=== PATIENT | female | born 1985 | race American Indian/Alaskan Native ===

== ENCOUNTER 2016-11-07 19:21 | Outpatient (CLI) | payer MEDICAID ==
[2016-11-07] MEDS ORDERED: LACTATED RINGERS 1,000 ML ONE (19:39)
[2016-11-07] MEDS ORDERED: LACTATED RINGERS 1,000 ML IV ONE (19:49)
[2016-11-07 20:02] VITALS: BP 102/57
[2016-11-07 20:31] LABS: Bilirubin,Urine NEG (Negative); Blood,Urine NEG (Negative); Ketones,Urine NEG (Negative); Leukocyte Esterase,Urine NEG (Negative); Mucus,Urine 1+ /HPF; Nitrite,Urine NEG (Negative); Protein,Urine <15 mg/dL mg/dL (Negative); Urobilinogen,Urine < 2.0 mg/dL (<2.0)
== END 2016-11-07 21:15 | disposition home or self-care (01) ==
LOC: TRG 19:21
PROVIDERS: ATTEND Obstetrics & Gynecology
DX: O62.9 Abnormality of forces of labor, unspecified (principal); Z3A.31 31 weeks gestation of pregnancy
CPT/HCPCS: 81001; 96360; J7120

== ENCOUNTER 2016-12-05 04:41 | Outpatient (CLI) | payer MEDICAID ==
[2016-12-05] MEDS ORDERED: LACTATED RINGERS 1,000 ML IV ONE (04:44)
[2016-12-05 04:58] VITALS: BP 97/61
[2016-12-05 05:39] LABS: Basophils % (Auto) 0.3 % (0.0-1.8); Eosinophils % (Auto) 1.2 % (0.0-4.3); Hematocrit 29.6 % (30.3-42.9); Hemoglobin 9.5 gm/dl (10.1-14.3); Mean Corpuscular HGB Conc 32 % (30-34); Mean Corpuscular Volume 75 fl (79-97); Platelet Count 301 K/mm3 (140-440); Red Blood Count 3.96 M/mm3 (3.65-5.03); Red Cell Distribution Width 16.7 % (13.2-15.2); White Blood Count 8.4 K/mm3 (4.5-11.0)
[2016-12-05 05:43] LABS: Mean Corpuscular Hemoglobin 24 pg (28-32)
[2016-12-05 05:45] LABS: Bacteria,Urine 1+ /HPF (Negative); Bilirubin,Urine NEG (Negative); Blood,Urine NEG (Negative); Ketones,Urine NEG (Negative); Leukocyte Esterase,Urine NEG (Negative); Nitrite,Urine NEG (Negative); Protein,Urine <15 mg/dL mg/dL (Negative); Urobilinogen,Urine < 2.0 mg/dL (<2.0); WBC,Urine < 1.0 /HPF (0.0-6.0)
[2016-12-05 06:02] LABS: Albumin 3.2 g/dL (3.9-5); Alkaline Phosphatase 111 units/L (35-129); Anion Gap 18 mmol/L; Bilirubin,Total < 0.20 mg/dL (0.1-1.2); Blood Urea Nitrogen 5 mg/dL (7-17); Calcium 8.9 mg/dL (8.4-10.2); Carbon Dioxide 21 mmol/L (22-30); Chloride 102.2 mmol/L (98-107); Glucose 85 mg/dL (65-100); Potassium 3.5 mmol/L (3.6-5.0); Sodium 138 mmol/L (137-145); Total Protein 6.5 g/dL (6.3-8.2)
[2016-12-05 06:08] LABS: Alanine Aminotransferase < 5 units/L (7-56)
== END 2016-12-05 06:23 | disposition home or self-care (01) ==
LOC: TRG 04:41
PROVIDERS: ATTEND Obstetrics & Gynecology
DX: Z34.93 Encounter for supervision of normal pregnancy, unspecified, third trimester (principal); Z3A.35 35 weeks gestation of pregnancy
CPT/HCPCS: 36415; 59025; 80053; 81001; 85025

== ENCOUNTER 2016-12-12 10:51 | Outpatient (CLI) | payer MEDICAID ==
[2016-12-12] MEDS ORDERED: LACTATED RINGERS 500 ML IV ONE (11:28)
[2016-12-12 12:35] LABS: Bacteria,Urine 2+ /HPF (Negative); Bilirubin,Urine NEG (Negative); Blood,Urine NEG (Negative); Ketones,Urine NEG (Negative); Leukocyte Esterase,Urine NEG (Negative); Mucus,Urine FEW /HPF; Nitrite,Urine NEG (Negative); Protein,Urine <15 mg/dL mg/dL (Negative); Urobilinogen,Urine < 2.0 mg/dL (<2.0)
--- NOTE | 2016-12-12 13:01 | Ultrasound Report ---
ULTRASOUND OB LIMITED History: well being, trauma, fall Technique: Transabdominal ultrasound with Doppler interrogation. Gestation: Single Position: Cephalic Amniotic Fluid: Increased VICKI = 26.0 cm Placenta: Anterior Placental Grade: 2 Heart Rate: 127 BPM Comment: No evidence for abruption.
[2016-12-12 14:43] VITALS: BP 103/52
== END 2016-12-12 16:00 | disposition home or self-care (01) ==
LOC: TRG 10:51
PROVIDERS: ATTEND Obstetrics & Gynecology
DX: O47.1 False labor at or after 37 completed weeks of gestation (principal); Z3A.37 37 weeks gestation of pregnancy
CPT/HCPCS: 59025; 76815; 81001

== ENCOUNTER 2016-12-29 22:28 | Inpatient (IN) | payer MEDICAID ==
[2016-12-30] MEDS ORDERED: LACTATED RINGERS 1,000 ML ONE (01:22)
[2016-12-30 01:43] LABS: Hematocrit 29.6 % (30.3-42.9); Hemoglobin 9.6 gm/dl (10.1-14.3); Mean Corpuscular HGB Conc 33 % (30-34); Mean Corpuscular Volume 74 fl (79-97); Platelet Count 254 K/mm3 (140-440); Red Blood Count 4.03 M/mm3 (3.65-5.03); Red Cell Distribution Width 17.4 % (13.2-15.2); White Blood Count 10.8 K/mm3 (4.5-11.0)
[2016-12-30 01:50] LABS: Mean Corpuscular Hemoglobin 24 pg (28-32)
[2016-12-30] MEDS ORDERED: STADOL IV PRN (02:35)
[2016-12-30] MEDS: LACTATED RINGERS 1,000 ML IV SCH ×2 (03:04→05:33)
[2016-12-30] MEDS ORDERED: PITOCin/NS 20 UNIT/1000ML DRIP 20,000 MILLIUNITS/1,000 ML BAG IV ONE (07:52)
[2016-12-30] MEDS ORDERED: BICITRA ONE (07:53)
[2016-12-30] MEDS ORDERED: ANCEF/STERILE WATER 2 GM/20 ML 2 GM/20 ML SYRINGE IV ONE (07:55)
[2016-12-30] MEDS ORDERED: PEPCID IV ONE (07:55)
[2016-12-30] MEDS ORDERED: REGLAN ONE (07:56)
[2016-12-30] MEDS ORDERED: ANCEF/STERILE WATER 2 GM/20 ML 2 GM/20 ML SYRINGE IV NR (08:00)
--- NOTE | 2016-12-30 08:07 | Anesthesia Day of Surgery ---
Anesthesia Day of Surgery - Day of Surgery Patient Examined: Yes Patient H&P Reviewed: Yes Patient is NPO: Yes
--- NOTE | 2016-12-30 08:07 | Anesthesia Consultation ---
Anesthesia Consult and Med Hx Date of service: 12/30/16 - Airway Anesthetic Teeth Evaluation: Good ROM Head & Neck: Adequate Mental/Hyoid Distance: Adequate Mallampati Class: Class II Intubation Access Assessment: Probably Good - Pre-Operative Health Status ASA Pre-Surgery Classification: ASA3 Proposed Anesthetic Plan: Epidural, Spinal - Pulmonary Hx Asthma: No - Cardiovascular System Hx Hypertension: No - Central Nervous System Hx Seizures: No Hx Psychiatric Problems: Yes (anxiety) - Endocrine Hx Renal Disease: Yes (kidney failure last ) Hx Hypothyroidism: No Hx Hyperthyroidism: No - Hematic Hx Anemia: No Hx Sickle Cell Disease: No - Other Systems Hx Alcohol Use: No Hx Obesity: Yes (BMI 42.9)
--- NOTE | 2016-12-30 08:15 | History and Physical Report ---
History of Present Illness Date of examination: 12/30/16 Date of admission: 12/30/16 08:07 Chief complaint: contractions, scheduled section History of present illness: Pt is 31 year old -[place] female SLOAN 01/05/17 at 39w1d who presented last night for contractions without cervical change but was scheduled for repeat section today. She denies vaginal bleeding or leakage of fluid. She has had care at [facility] since 13 wks when she transferred into care complicated by previous x 1, contractions and size greater than dates. She is GBS negative. Past History Past Medical History: no pertinent history Past Surgical History: section (2010) Family/Genetic History: diabetes, hypertension Social history: no significant social history, - Obstetrical History Expected Date of Delivery: 01/05/17 Actual Gestation: 39 Week(s) 1 Day(s) : 2 Para: 1 Hx # Term Pregnancies: 0 Number of Pregnancies: 1 Spontaneous Abortions: 0 Induced : 0 Number of Living Children: 1 Medications and Allergies Allergies Allergy/AdvReac Type Severity Reaction Status Date / Time latex Allergy Swelling Verified 12/12/16 11:28 magnesium Allergy Swelling Verified 12/12/16 11:28 Home Medications Medication Instructions Recorded Confirmed Last Taken Type Amoxicillin [Trimox CAP] 500 mg PO Q8H #21 capsule 05/26/13 Unknown Rx Ranitidine HCl [Ranitidine] 150 mg PO Q12H #30 tablet 05/26/13 Unknown Rx Active Meds: Active Medications Butorphanol Tartrate (Stadol) 2 mg IV Q2H PRN PRN Reason: Labor Pain Hydromorphone HCl (Dilaudid) 0.5 mg IV Q4H PRN PRN Reason: breakthrough pain > 7/10 Lactated Ringer's (Lactated Ringers) 1,000 mls @ 125 mls/hr IV DIRECT ROXY Last Admin: 12/30/16 05:33 Dose: 125 mls/hr Ketorolac Tromethamine (Toradol) 30 mg IV Q6H PRN PRN Reason: Pain, Moderate (4-6) Stop: 01/04/17 08:07 Naloxone HCl (Narcan 0.4 Mg/1 Ml) 0.2 mg IV Q2MIN PRN PRN Reason: Res Rate </= 8 or 02 SAT < 92% Stop: 01/01/17 08:08 Ondansetron HCl (Zofran) 4 mg IV Q8H PRN PRN Reason: Nausea And Vomiting Sodium Chloride (Sodium Chloride Flush Syringe 10 Ml) 10 ml IV PRN NR Review of Systems All systems: negative - Vital Signs Vital signs: Vital Signs Pulse BP 81 103/63 12/30/16 03:25 12/30/16 03:25 Temp Pulse Resp BP Pulse Ox 98.5 F 83 103/63 87 12/30/16 03:31 12/30/16 07:30 12/30/16 03:31 12/30/16 07:30 - Physical Exam Breasts: Positive: deferred Cardiovascular: Regular rate Lungs: Positive: Clear to auscultation Abdomen: Positive: soft (obese, gravid ) Uterus: Positive: enlarged (gravid ) Extremities: Positive: edema (trace ) - Obstetrical FHR: auscultation normal Uterine Contraction Monitor Mode: External Cervical Dilatation: 0 Uterine Contraction Pattern: Irregular Uterine Tone Measurement Phase: Resting Uterine Contraction Intensity: Strong/Firm Results Result Diagrams: 12/30/16 00:35 Abnormal lab results 12/30/16 Range/Units 00:35 Hgb 9.6 L (10.1-14.3) gm/dl Hct 29.6 L (30.3-42.9) % MCV 74 L (79-97) fl MCH 24 L (28-32) pg RDW 17.4 H (13.2-15.2) % All other labs normal. Assessment and Plan A: IUP at 39w1d Previous section x 1 Morbid Obesity Anemia- currently refusing blood products GBS negative P: Admit to labor and delivery. Proceed with repeat section and other indicated procedures.
[2016-12-30] MEDS ORDERED: MORPHINE ONE (08:20)
[2016-12-30] MEDS ORDERED: ZOFRAN IV PRN ×2 (08:30→12:00)
[2016-12-30] MEDS ORDERED: BICITRA PO NR (08:30)
[2016-12-30] MEDS ORDERED: REGLAN IV NR (08:30)
[2016-12-30] MEDS ORDERED: PEPCID IV NR (08:30)
[2016-12-30] MEDS ORDERED: DILAUDID IV PRN (08:30)
[2016-12-30] MEDS ORDERED: WATER FOR IRRIG STERILE IR ONE (08:40)
[2016-12-30] MEDS ORDERED: NACL 0.9% IR ONE (08:40)
[2016-12-30] MEDS ORDERED: SODIUM CHLORIDE FLUSH SYRINGE 10 ML IV PRN (09:00)
[2016-12-30] MEDS ORDERED: PITOCin/NS 20 UNIT/1000ML DRIP 20 UNITS/1,000 ML BAG IV SCH ×2 (09:00→12:00)
[2016-12-30] MEDS ORDERED: LACTATED RINGERS 1,000 ML IV SCH (09:00)
[2016-12-30] MEDS ORDERED: NARCAN 0.4 MG/1 ML IV PRN ×2 (09:00→12:00)
[2016-12-30] MEDS ORDERED: NEO SYNEPHRINE/NS Syringe(OR USE) IV ONE (09:00)
[2016-12-30] MEDS ORDERED: NACL 0.9% 1000 ML 1,000 ML ONE (09:02)
--- NOTE | 2016-12-30 09:57 | Procedure Note ---
OB Delivery Note - Delivery Date of Delivery: 12/30/16 Surgeon: CASIE TAM Estimated blood loss: other (850 mL) - Section Preop diagnosis: repeat Postop diagnosis: same section procedure: section, repeat low transverse Disposition: PACU Complications: none Narrative: Please see operative note. - Infant A at 1 minute: 9 at 5 minutes: 9 Gender: Male (3553g (7lb 13 oz))
--- NOTE | 2016-12-30 10:02 | Operative Report ---
Operative Report Operative Report: Date of procedure:December 30, 2016 Preoperative diagnosis: 1) IUP at 39w1d 2) Previous section x 1 3) Morbid Obesity Postoperative diagnosis: Same Procedure: Repeat low transverse section Surgeon: Isa Frank M.D. Anesthesia: Spinal-Epidural Findings: 1) Viable male , Apgars 9 and 9, weight 3553g, (7 lb 13 oz). Nuchal cord x 1. Occiput posterior presentation 2) Normal-appearing uterus ovaries and tubes Estimated blood loss: 850 mL IV fluids: 1700 mL Urine output: 500 mL, clear at the end of the procedure Drains: Boyd to gravity Specimens: None Complications:None Medication: Additional 20 units of pitocin in IVFs Disposition: Stable to PACU Indication for procedure: Pt is a 31 year old -[place] female at 39w1d with h/o previous x 1 who presents for scheduled section. Operation in detail: After the risks, benefits, alternatives and complications were explained to the patient she gave informed consent for the procedure. She was subsequently taken to the operating room where spinal-epidural anesthesia was noted to be adequate. She was subsequently placed in the dorsal supine position with leftward tilt and prepped and draped in a normal sterile fashion. heart tones were noted to be in the 140s prior to incision. A timeout was performed. A Pfannenstiel skin incision was made with the knife and carried down to the layer of the fascia with the Bovie. The fascia was incised in the midline and the fascial incision was extended bilaterally with the Bovie. Attention was then turned to the superior aspect of the incision which was grasped with two Kochers, tented up, and dissected off the rectus muscles. Attention was then turned to the inferior aspect of the incision which was grasped with two Kochers , tented up and dissected off the rectus muscles. The rectus muscles were then in the midline and partially transected for adequate visualization. The peritoneum was then entered bluntly. The peritoneal incision was extended with good visualization of the bladder. The peritoneal incision was then stretched. An Shahzad self-retaining retractor was placed for visualization. The bladder blade was placed. The vesicouterine peritoneum was grasped with smooth pickups and incised with Metzenbaum scissors. Metzenbaum scissors were used to extend the incision bilaterally. The bladder flap was then created digitally and the bladder blade was replaced. A transverse incision was made in the lower uterine segment with a knife and extended bilaterally with the bandage scissors. The head was delivered without difficulty followed by shoulders and body. was bulb suctioned at delivery. The cord was clamped and cut and the was handed to NICU staff in attendance. Cord blood was collected. The placenta was then delivered manually. The uterus was then cleared of all clots and debris. The uterus was noted to be atonic, and 20 units of pitocin were added to the IVFs with improvement in uterine tone.The hysterotomy was then reapproximated with 0 Vicryl in a running locked fashion. A second layer of the same suture was used in imbricating fashion. The hysterotomy was inspected and hemostasis was noted. The Shahzad self-retaining retractor was removed. The gutters were irrigated and cleared of all clots and debris. The hysterotomy was again inspected and noted to be hemostatic. Surgicel was placed over the hysterotomy. The rectus muscles and peritoneum were then reapproximated with 2-0 Vicryl in a running fashion. Additional figure of eights of 3-0 Vicryl suture were used to obtain hemostasis. The cut edges of the rectus muscles were then covered with Surgicel. The fascia was reapproximated with 0 Vicryl in a running fashion. The subcutaneous tissue was reapproximated with 3-0 Vicryl. The skin was reapproximated with 4-0 Vicryl in a subcuticular fashion. The incision was then covered with steri strips and a pressure dressing. The procedure was then ended. The patient tolerated the procedure well and was taken to the PACU in stable condition. All instrument, lap, and needle counts were correct 3.
[2016-12-30] MEDS ORDERED: LANSINOH TP PRN (12:00)
[2016-12-30] MEDS ORDERED: ANCEF/NS 1 GM/50 ML 1 GM/50 ML BAG IV SCH (12:00)
[2016-12-30] MEDS ORDERED: TYLENOL PO PRN (12:00)
[2016-12-30] MEDS ORDERED: TUCKS PAD TP PRN (12:00)
[2016-12-30] MEDS ORDERED: SODIUM CHLORIDE FLUSH SYRINGE 10 ML IV NR (12:00)
[2016-12-30] MEDS ORDERED: MORPHINE IV PRN ×2 (12:00)
[2016-12-30] MEDS: TORADOL IV PRN (12:21)
[2016-12-30] MEDS: D5LR 1,000 ML IV SCH ×2 (14:44→22:08)
[2016-12-30] MEDS: ANCEF/NS 1 GM/50 ML 1 GM/50 ML BAG IV SCH ×2 (15:50→23:57)
[2016-12-30] MEDS: FEOSOL PO SCH (22:00)
[2016-12-30 22:27] LABS: Hematocrit 27.3 % (30.3-42.9); Hemoglobin 8.4 gm/dl (10.1-14.3)
--- NOTE | 2016-12-31 00:19 | Progress Note ---
Subjective Date of service: 12/31/16 Interval history: Consultation was requested to evaluate patient with dizziness. Ms Echeverria had a c section delivery under spinal epidural anesthesia this AM. She is now complaining of dizziness. She has no other symptoms including headache. She describes the dizziness as being somewhat more severe when standing but still present when semi recumbent. She has not been completely supine since delivery. On physical exam, patient was nursing her infant and was in no obvious distress. The epidural site was clear, non-erythematous and non tender. There was no discharge from the site. Her lower extremities showed no motor or sensory deficit. Can not completely rule out post dural puncture etiology but this is unlikely. Will reevaluate patient in AM. Objective - Constitutional Vitals: Vital Signs - 12hr 12/30/16 12/30/16 16:12 19:54 Temperature 98.4 F 98.6 F Pulse Rate 76 88 Respiratory 16 20 Rate Blood Pressure 90/60 107/63 [Right] - Labs CBC & Chem 7: 12/30/16 Unknown Labs: Abnormal lab results 12/30/16 12/30/16 Range/Units 00:35 Unknown Hgb 9.6 L 8.4 L (10.1-14.3) gm/dl Hct 29.6 L 27.3 L (30.3-42.9) % MCV 74 L (79-97) fl MCH 24 L (28-32) pg RDW 17.4 H (13.2-15.2) %
[2016-12-31] MEDS: TORADOL IV PRN (05:53)
--- NOTE | 2016-12-31 08:36 | Progress Note ---
Assessment and Plan - Patient Problems (1) Previous delivery affecting Current Visit: Yes Status: Acute Plan to address problem: Patient doing well Routine postoperative care Subjective - Subjective Date of service: 12/31/16 Interval history: Patient without any significant complaints. She is tolerating clear diet without complication. The patient is breast-feeding without difficulty. She reports ambulating in the room. Patient reports: appetite normal, voiding normally, pain well controlled [place]: doing well, nursing well Objective - Vital Signs Latest vital signs: Vital Signs Temp Pulse Resp BP BP 12/31/16 03:45 98.9 F 98 H 20 102/68 12/31/16 00:00 99.6 F 100 H 20 105/63 12/30/16 19:54 98.6 F 88 20 107/63 12/30/16 16:12 98.4 F 76 16 90/60 12/30/16 11:40 97.4 F L 78 18 104/62 12/30/16 10:15 98.7 F 81 16 96/50 Intake and Output 12/30/16 12/31/16 12/31/16 22:59 06:59 14:59 Intake Total 1215 120 Output Total 820 1100 Balance 395 -980 Intake: IV 975 ANCEF/NS 1 GM/50 ML 1 gm 50 In 50 ml @ 100 mls/hr IV Q8H ROXY Rx#:[id number] D5lr 1,000 ml @ 125 mls/ 925 hr IV DIRECT ROXY Rx#: [id number] Oral 240 120 Output: Urine 820 1100 Indwelling Catheter 400 Void 1100 Other: Total, Intake Amount 240 120 Total, Output Amount 400 800 Voiding Method Indwelling Catheter # Voids Void 2 - Exam Uterus: Present: normal, firm Incision: Present: dressed - Labs Labs: Abnormal lab results 12/30/16 Range/Units Unknown Hgb 8.4 L (10.1-14.3) gm/dl Hct 27.3 L (30.3-42.9) %
[2016-12-31] MEDS ORDERED: BENADRYL PO PRN (08:45)
[2016-12-31] MEDS ORDERED: M-M-R II VACCINE SUB-Q ONE (10:03)
[2016-12-31] MEDS ORDERED: BOOSTRIX IM ONE (10:03)
[2016-12-31] MEDS: FEOSOL PO SCH ×2 (10:17→23:55)
[2016-12-31] MEDS: PRENATAL VITAMIN PO SCH (10:18)
--- NOTE | 2016-12-31 10:35 | Progress Note ---
Subjective Date of service: 12/31/16 Interval history: 1st POD after Patient is in the bed, comfortable. Pain is well controlled with pain meds. Ambulated well. No residual neurological deficit. No dizziness. No headache. No anesthesia complications Objective - Constitutional Vitals: Vital Signs - 12hr 12/31/16 12/31/16 12/31/16 00:00 03:45 08:04 Temperature 99.6 F 98.9 F 99.5 F Pulse Rate 100 H 98 H 84 Respiratory 20 20 20 Rate Blood Pressure 105/63 102/68 98/50 [Right] - Labs CBC & Chem 7: 12/30/16 Unknown Labs: Abnormal lab results 12/30/16 Range/Units Unknown Hgb 8.4 L (10.1-14.3) gm/dl Hct 27.3 L (30.3-42.9) %
[2016-12-31] MEDS: PERCOCET 5/325 PO PRN ×2 (15:44→23:53)
[2016-12-31] MEDS: MOTRIN PO PRN (15:45)
[2017-01-01] MEDS: MOTRIN PO PRN ×2 (06:28→19:00)
[2017-01-01] MEDS: PERCOCET 5/325 PO PRN ×3 (06:34→19:00)
--- NOTE | 2017-01-01 10:07 | Progress Note ---
Assessment and Plan A: POD#2 s/p repeat delivery, asymptomatic anemia; lower extremity edema P: IV Lasix Encourage ambulation Routine postoperative care Subjective - Subjective Date of service: 01/01/17 Principal diagnosis: s/p repeat section at term, asymptomatic anemia Interval history: Pt c/o lower extremity edema. She has not passed flatus. Patient reports: appetite normal, voiding normally, pain well controlled, no dizzy ambulation, no flatus, no bowel movement, no ambulating normally ( minimally secondary to pedal edema ) [place]: doing well Objective - Vital Signs Latest vital signs: Vital Signs Temp Pulse Resp BP Pulse Ox 01/01/17 07:52 98.2 F 101 H 18 92/53 100 01/01/17 06:34 18 01/01/17 00:10 98.4 F 95 H 20 91/51 12/31/16 23:53 18 12/31/16 16:36 99.9 F H 84 20 90/50 Intake and Output 12/31/16 01/01/17 01/01/17 22:59 06:59 14:59 Intake Total 360 360 Balance 360 360 Intake: Oral 360 360 Other: Total, Intake Amount 240 120 # Voids Void 1 1 - Exam Breasts: Present: deferred Cardiovascular: Present: Regular rate Lungs: Present: Clear to auscultation (obese) Abdomen: Present: distention, abnormal bowel sounds (hypoactive) Uterus: Present: fundal height at umbilicus Extremities: Present: edema (2+) Incision: Present: dressed
[2017-01-01] MEDS: PRENATAL VITAMIN PO SCH (10:51)
[2017-01-01] MEDS: FEOSOL PO SCH ×2 (10:51→22:00)
[2017-01-01] MEDS: LASIX IV SCH (11:40)
[2017-01-02] MEDS: PERCOCET 5/325 PO PRN ×2 (01:56→14:14)
[2017-01-02] MEDS: MOTRIN PO PRN ×2 (01:56→14:14)
--- NOTE | 2017-01-02 08:59 | Progress Note ---
Assessment and Plan O: VSS Af Temp at noon yesterday 103, none since PP H/H: 8.4/27.3 A: Stable POD #3 S/P repeat C/S Anemia P: Iron TID Routine post op instruction Subjective - Subjective Date of service: 01/02/17 Principal diagnosis: s/p repeat section at term, asymptomatic anemia Patient reports: appetite normal, voiding normally, pain well controlled, flatus , bowel movement, ambulating normally [place]: doing well, nursing well, bottle feeding Objective - Vital Signs Latest vital signs: Vital Signs Temp Pulse Resp BP Pulse Ox 01/02/17 02:00 98.9 F 01/01/17 23:27 98.9 F 79 18 101/68 01/01/17 12:22 97.3 F L 103 H 16 98/66 99 Intake and Output 01/01/17 01/02/17 01/02/17 22:59 06:59 14:59 Intake Total 240 540 Balance 240 540 Intake: Intake, Free Water 240 540 Other: # Voids Void 1 1 - Exam Abdomen: Present: normal appearance, normal bowel sounds. Absent: soft, distention Uterus: Present: normal, firm, fundal height below umbilicus. Absent: bogginess , tenderness Extremities: Present: normal Incision: Present: normal, dry, intact
--- NOTE | 2017-01-02 09:02 | Discharge Summary ---
Providers - Providers Date of Admission: 12/30/16 08:07 Date of discharge: 01/02/17 Attending physician: CASIE TAM 12/30/16 12:00 Consult to Drywall Applicator [CONS] Routine Reason For Exam: Primary care physician: CASIE TAM Hospitalization Reason for admission: section, IUP at term Delivery: Procedure: repeat low transverse Episiotomy: none Laceration: none Incision: normal, dry, intact Other procedures: none Discharge diagnosis: IUP at term delivered baby: male Condition at discharge: Good Disposition: DC-01 TO HOME OR SELFCARE Plan - Discharge Medications Prescriptions: Docusate Sodium [Colace] 100 mg PO BID PRN #60 capsule PRN Reason: Constipation Ferrous Sulfate [Feosol 325 MG tab] 325 mg PO TID #90 tablet Ibuprofen [Motrin] 800 mg PO Q8HR PRN #30 tablet PRN Reason: Pain oxyCODONE /ACETAMINOPHEN [Percocet 5/325] 1 tab PO Q6HR PRN #30 tablet PRN Reason: Pain - Provider Discharge Summary Additional instructions: [] Smoking cessation referral if applicable(refer to patient education folder for contact #) [] Refer to [employer] Booklet Call your doctor immediately for: * Fever > 100.5 * Heavy vaginal bleeding ( >1 pad per hour) * Severe persistent headache * Shortness of breath * Reddened, hot, painful area to leg or breast * Drainage or odor from incision. * Keep incision clean and dry at all times and follow doctor's instructions regarding bathing/showering - Follow up plan Follow up: CASIE TAM MD [Primary Care Provider] - 14 Days (call and schedule circumcision)
[2017-01-02] MEDS: FEOSOL PO SCH (10:41)
[2017-01-02] MEDS: PRENATAL VITAMIN PO SCH (10:41)
[2017-01-02] MEDS: LASIX IV SCH (10:42)
[2017-01-02 17:26] VITALS: BP 96/57
== END 2017-01-02 17:55 | disposition home or self-care (01) | DRG 765 ==
LOC: TRG 22:28 → LD 12-30 02:18 → TRG 12-30 08:04 → LD 12-30 08:07 → EDSTATUS 12-30 11:30 → OB 12-30 11:46
PROVIDERS: ADMIT Obstetrics & Gynecology; ATTEND Obstetrics & Gynecology
PROC: 10D00Z1 Extraction of Products of Conception, Low, Open Approach (ICD-10-PCS; principal; 2016-12-30)
PROC: 3E0234Z Introduction of Serum, Toxoid and Vaccine into Muscle, Percutaneous Approach (ICD-10-PCS; 2017-01-01)
DX: O34.211 Maternal care for low transverse scar from previous cesarean delivery (principal); Z68.41 Body mass index [BMI] 40.0-44.9, adult; Z3A.39 39 weeks gestation of pregnancy; Z37.0 Single live birth; O99.214 Obesity complicating childbirth; E66.01 Morbid (severe) obesity due to excess calories; O99.02 Anemia complicating childbirth; O69.81X0 Labor and delivery complicated by cord around neck, without compression, not applicable or unspecified; Z23 Encounter for immunization; Z88.8 Allergy status to other drugs, medicaments and biological substances; D64.9 Anemia, unspecified
CPT/HCPCS: 36415; 85014; 85018; 85027; 86592; 86850; 86900; 86901; 90471; 99211; G0463; J0595; J0690; J1885; J1940; J2270; J2370; J2405; J2590; J2765; J7030; J7120; J7121